=== PATIENT | male | born 1955 | race Caucasian/White ===

== ENCOUNTER 2022-05-15 08:09 | Emergency (ER) | payer OTHER ==
[2022-05-15 08:37] VITALS: PULSE 72; RESP 18; BMI 31.6
[2022-05-15] MEDS ORDERED: KETOROLAC TROMETHAMINE 30 MG/1 ML VIAL IM ONE (09:31)
[2022-05-15] MEDS ORDERED: LIDOCAINE 5% TOPICAL PATCH TP ONE (09:31)
[2022-05-15] MEDS ORDERED: METHOCARBAMOL 500 MG TABLET PO ONE (09:31)
[2022-05-15] MEDS ORDERED: KETOROLAC TROMETHAMINE 30 MG/1 ML VIAL ONE (09:58)
[2022-05-15] MEDS ORDERED: METHOCARBAMOL 500 MG TABLET ONE (09:58)
[2022-05-15] MEDS ORDERED: LIDOCAINE 5% TOPICAL PATCH ONE (09:58)
[2022-05-15 10:28] LABS: BASO % 0.9 % (0-2.0); EOS % 4.3 % (0-4.5); HEMATOCRIT 44.8 % (35.4-49); HEMOGLOBIN 14.6 GM/dL (11.7-16.9); LYMPH % 30.8 % (8-40); MCH 26.4 pg (25.7-33.7); MCHC 32.6 g/dl (32.0-35.9); MEAN PLT VOLUME 8.3 fl (7.5-11.1); MONO % 10.5 % (3.8-10.2); NEUT % 53.5 % (42.8-82.8); PLATELET COUNT 190 10^3/uL (134-434); RBC 5.53 M/mm3 (4.00-5.60); RDW 15.3 % (11.9-15.9); WHITE BLOOD COUNT 5.4 K/mm3 (4.0-10.0)
[2022-05-15 10:54] LABS: CALCIUM 9.3 mg/dL (8.5-10.1)
[2022-05-15 10:55] LABS: BLOOD UREA NITROGEN 24.9 mg/dL (7-18)
[2022-05-15 10:57] LABS: CREATININE 1.1 mg/dL (0.55-1.3)
[2022-05-15 10:58] LABS: TOT PROT 7.4 g/dl (6.4-8.2)
[2022-05-15 10:59] LABS: BILIRUBIN,TOTAL 0.3 mg/dL (0.2-1)
[2022-05-15 11:47] LABS: URINE APPEARANCE CLEAR; URINE BILIRUBIN NEGATIVE (NEGATIVE); URINE COLOR YELLOW; URINE GLUCOSE (UA) NEGATIVE (NEGATIVE); URINE KETONE NEGATIVE (NEGATIVE); URINE LEUK ESTERASE NEGATIVE (NEGATIVE); URINE NITRITE NEGATIVE (NEGATIVE); URINE PROTEIN NEGATIVE (NEGATIVE); URINE UROBILINOGEN 0.2 mg/dL (0.2-1.0)
[2022-05-15 13:02] VITALS: BP 112/56; TEMP 98
[2022-05-15] MEDS ORDERED: LIDOCAINE PATCH REMOVAL MC ONE (22:00)
== END 2022-05-15 13:07 | disposition home or self-care (01) ==
LOC: JER 08:09
PROC: 3E0233Z Introduction of Anti-inflammatory into Muscle, Percutaneous Approach (ICD-10-PCS; principal; 2022-05-15)
DX: R07.81 Pleurodynia (principal)
CPT/HCPCS: 36415; 71046-TC-FY; 72100-TC-FY; 80053; 81003; 83690; 84484; 85025; 93005; 93010; 99285-25